=== PATIENT | male | born 1940 | race Caucasian/White ===

== ENCOUNTER 2017-09-29 09:06 | Day surgery (SDC) | payer MEDICARE, OTHER ==
[2017-09-29] MEDS: traMADol 50 MG TAB PO (09:40)
[2017-09-29] MEDS: GABAPENTIN 300 MG CAP PO (09:40)
[2017-09-29] MEDS: DEXAMETHASONE 1 MG TAB PO (09:40)
[2017-09-29] MEDS ORDERED: METOCLOPRAMIDE 10 MG INJ (10:21)
[2017-09-29] MEDS ORDERED: PROPOFOL 20 ML (10:21)
[2017-09-29] MEDS ORDERED: ROPIVACAINE 0.2% 20 ML VIAL (10:21)
[2017-09-29] MEDS ORDERED: MIDAZOLAM 1 MG/ML 2 ML INJ (10:21)
[2017-09-29] MEDS ORDERED: CEFAZOLIN 1 GM INJ (10:34)
[2017-09-29] MEDS ORDERED: ONDANSETRON 4 MG INJ (10:35)
[2017-09-29] MEDS ORDERED: ACETAMINOPHEN 1000MG/100ML IV 100 ML (10:35)
[2017-09-29] MEDS ORDERED: ROCURONIUM 50 MG INJ (11:09)
[2017-09-29] MEDS ORDERED: SUCCINYLCHOLINE CHLORIDE 100 MG/5 ML SYG IV (11:14)
[2017-09-29] MEDS: BUPIVACAINE 0.5%/EPI (SDV) 30 ML INJ (11:29)
[2017-09-29] MEDS ORDERED: DIPHENHYDRAMINE 50 MG INJ IV (12:00)
[2017-09-29] MEDS ORDERED: ONDANSETRON 4 MG INJ IV (12:00)
[2017-09-29] MEDS ORDERED: HYDROmorphONE (0.2 MG/ML) 10ML SYG IV ×3 (12:00)
[2017-09-29] MEDS ORDERED: OXYCODONE/ACETAMINOPHEN (5/325) TAB PO ×2 (12:00)
[2017-09-29] MEDS ORDERED: MEPERIDINE 25 MG INJ IV (12:00)
[2017-09-29] MEDS ORDERED: GLYCOPYRROLATE 0.4 MG INJ (12:26)
[2017-09-29] MEDS ORDERED: NEOSTIGMINE 3 MG/3 ML SYRINGE (12:26)
[2017-09-29] MEDS: TRANEXAMIC ACID 1,000 MG in DEXTROSE 5% 100 ML IVPB (13:22)
== END 2017-09-29 15:00 | disposition home or self-care (01) ==
LOC: SDS 09:06
DX: M75.102 Unspecified rotator cuff tear or rupture of left shoulder, not specified as traumatic (principal); M13.812 Other specified arthritis, left shoulder; S46.212A Strain of muscle, fascia and tendon of other parts of biceps, left arm, initial encounter; X58.XXXA Exposure to other specified factors, initial encounter; I10 Essential (primary) hypertension; E11.9 Type 2 diabetes mellitus without complications; E78.5 Hyperlipidemia, unspecified; N40.0 Benign prostatic hyperplasia without lower urinary tract symptoms
CPT/HCPCS: 29824; 93005